=== PATIENT | male | born 1970 | race Caucasian/White ===

== ENCOUNTER 2018-03-01 18:31 | Emergency (ER) | payer OTHER ==
[2018-03-01] MEDS ORDERED: CYCLOBENZAPRINE 10 MG TAB ONE (20:13)
[2018-03-01] MEDS ORDERED: ONDANSETRON 4 MG/2 ML VIAL ONE (20:15)
[2018-03-01] MEDS ORDERED: KETOROLAC 30 MG/ML INJ ONE (20:15)
[2018-03-01] MEDS ORDERED: MORPHINE 4 MG/ML SYR ONE (20:15)
--- NOTE | 2018-03-01 21:11 | RAD REPORT ---
EXAM DESCRIPTION: CT - Spine Lumbar Wo Con - 03/01/2018 8:51 pm CLINICAL HISTORY: LOWER BACK PAIN<Reason For Exam>LOWER BACK PAIN COMPARISON: No comparisons<Comparisons> TECHNIQUE: Thin section axial imaging of the lumbar spine was performed. Sagittal and coronal recon struction images were generated and reviewed. All CT scans are performed using dose optimization technique as appropriate and may include automated exposure control or mA/KV adjustment according to patient size. FINDINGS: Lumbar bodies are normal in height and normal alignment. Pedicle screws and rods are in pl carleen fusing the L5-S1 level. There is additional metallic hardware spanning the L5-S1 disc level. L4-5 fusion material is present in the disc space. No fracture or acute bone process seen. No lytic, scle rotic or expansile process identified. No gross evidence for central disc herniation or significant central spinal stenosis. Patient has a m ild disc bulge across the central canal at L2-3 with more prominent disc bulge at L3-4. Canal appears to be stenotic at L3-4. L4-5 and L5-S1 assessment is limited by the hardware. No gross evidence for central canal stenosis. IMPRESSION: Prominent circumferential bulging of disc material at L3-4. Facet degenerative change an d mild ligamentous thickening are present. L3-4 changes result in central spinal stenosis and there is likely bilateral foraminal encroachment a s well. Fusion of the L4-5 disc space with no acute finding. Surgical hardware and graft material fuse the L5-S1 level. Again, no acute finding identifiable.
[2018-03-01 21:23] LABS: Urine Blood NEGATIVE (NEG); Urine Glucose NEGATIVE (NEG); Urine Protein NEGATIVE (NEG); Urine pH 6.5 (5.0-7.0)
[2018-03-01] MEDS ORDERED: HYDROMORPHONE HCL 0.5 MG/0.5 ML INJ ONE (22:35)
--- NOTE | 2018-03-01 22:42 | ER ---
Nurse's Notes [facility] Name: Ronald Guadalupe Age: 47 yrs Sex: Male : 1970 Arrival Date: 03/01/2018 Time: 18:38 Bed 8 Private MD: None, None Diagnosis: Low back pain Presentation: 03/01 18:48 Presenting complaint: Patient states: low back pain x 1 day. Transition of care: sv patient was not received from another setting of care. Onset of symptoms was February 28, 2018. Care prior to arrival: None. 18:48 Method Of Arrival: Ambulatory sv 18:48 Acuity: SAMMIE 4 sv 19:28 Risk Assessment: Do you want to hurt yourself or someone else? Patient reports no jd3 desire to harm self or others. Initial Sepsis Screen: Does the patient meet any 2 criteria? No. Patient's initial sepsis screen is negative. Does the patient have a suspected source of infection? No. Patient's initial sepsis screen is negative. Triage Assessment: 18:51 General: Appears in no apparent distress. uncomfortable, Behavior is calm, cooperative, sv appropriate for age. Pain: Complains of pain in low back area Pain currently is 8 out of 10 on a pain scale. Pain began 1 day ago. EENT: No signs and/or symptoms were reported regarding the EENT system. Neuro: Level of Consciousness is awake, alert, obeys commands, Oriented to person, place, time, situation, Moves all extremities. Full function Gait is steady. Respiratory: Respiratory effort is even, unlabored, Respiratory pattern is regular, symmetrical. Musculoskeletal: Range of motion: intact in all extremities. Historical: - Allergies: 18:50 No Known Allergies; sv - Home Meds: 18:50 Oxycodone HCl Oral [Active]; Etodolac Oral [Active]; Atenolol Oral [Active]; gabapentin sv oral oral [Active]; - PMHx: 18:50 Hypertension; sv - PSHx: 18:50 Back; Tonsillectomy; sv - Immunization history:: Adult Immunizations up to date. - Social history:: Smoking status: Patient uses tobacco products, smokes one pack cigarettes per day. - Ebola Screening: : No symptoms or risks identified at this time. Screenin:27 Abuse screen: Denies threats or abuse. Nutritional screening: No deficits noted. jd3 Tuberculosis screening: No symptoms or risk factors identified. Fall Risk Ambulatory Aid- None/Bed Rest/Nurse Assist (0 pts). Gait- Weak (10 pts.). Mental Status- Oriented to own ability (0 pts). Total Singleton Fall Scale indicates No Risk (0-24 pts). Assessment: 19:23 General: Appears uncomfortable, Behavior is cooperative, anxious. Pain: Complains of jd3 pain in sacrum Pain currently is 10 out of 10 on a pain scale. Quality of pain is described as sharp, shooting, different from pt's chronic back pain. Neuro: Level of Consciousness is awake, alert, obeys commands, Oriented to person, place, time, situation. Cardiovascular: Capillary refill < 3 seconds Patient's skin is warm and dry. Respiratory: Airway is patent Respiratory effort is even, unlabored, Respiratory pattern is regular, symmetrical. GI: Abdomen is round Reports nausea, vomiting, Patient currently denies abdominal pain. : No signs and/or symptoms were reported regarding the genitourinary system. EENT: No signs and/or symptoms were reported regarding the EENT system. Derm: Skin is intact, Skin is dry, Skin is normal, Skin temperature is warm. Musculoskeletal: Circulation, motion, and sensation intact. Range of motion: intact in all extremities. 20:32 Reassessment: Patient appears in no apparent distress at this time. No changes from jd3 previously documented assessment. Patient and/or family updated on plan of care and expected duration. Pain level reassessed. Patient is alert, oriented x 3, equal unlabored respirations, skin warm/dry/pink. 21:15 Reassessment: Patient appears in no apparent distress at this time. No changes from jd3 previously documented assessment. Patient and/or family updated on plan of care and expected duration. Pain level reassessed. Patient is alert, oriented x 3, equal unlabored respirations, skin warm/dry/pink. 22:22 Reassessment: Patient appears in no apparent distress at this time. No changes from jd3 previously documented assessment. Patient and/or family updated on plan of care and expected duration. Pain level reassessed. Patient is alert, oriented x 3, equal unlabored respirations, skin warm/dry/pink. 23:03 Reassessment: Patient appears in no apparent distress at this time. Patient and/or [facility] family updated on plan of care and expected duration. Pain level reassessed. Patient is alert, oriented x 3, equal unlabored respirations, skin warm/dry/pink. Vital Signs: 18:50 BP 161 / 79; Pulse 55; Resp 18; Temp 97; Pulse Ox 99% ; Weight 99.79 kg; Height 6 ft. 2 sv in. (187.96 cm); Pain 8/10; 20:31 BP 142 / 75; Pulse 50; Resp 18 S; Pulse Ox 98% on R/A; jd3 21:14 BP 159 / 47; Pulse 49; Resp 17 S; Pulse Ox 97% on R/A; jd3 22:21 BP 144 / 71; Pulse 54; Resp 17 S; Pulse Ox 100% on R/A; jd3 18:50 Body Mass Index 28.25 (99.79 kg, 187.96 cm) sv ED Course: 18:38 Patient arrived in ED. sb2 18:39 None, None is Private Physician. sb2 18:49 Triage completed. sv 18:51 Arm band placed on left wrist. sv 18:52 Patient placed in waiting room, Patient notified of wait time. sv 19:16 Ramirez Barth MD is Attending Physician. tw4 19:19 Gagan Weber, MAGUE is Primary Nurse. jd3 19:28 Patient has correct armband on for positive identification. Bed in low position. Call jd3 light in reach. Side rails up X 1. Adult w/ patient. 20:00 Inserted saline lock: 20 gauge in right antecubital area, using aseptic technique. jd3 Blood collected. 20:[address] jg6 20:48 CT completed. Patient tolerated procedure well. Patient moved back from PR. nj 20:52 CT Lumbar Spine Wo Con In Process Unspecified. EDMS 23:02 No provider procedures requiring assistance completed. IV discontinued, intact, jd3 bleeding controlled, No redness/swelling at site. Pressure dressing applied. Administered Medications: 20:16 Drug: Flexeril 10 mg Route: PO; jd3 20:52 Follow up: Response: No adverse reaction jd3 20:17 Drug: morphine 4 mg Route: IVP; Site: right antecubital; jd3 20:53 Follow up: Response: No adverse reaction jd3 20:17 Drug: Zofran 4 mg Route: IVP; Site: right antecubital; jd3 20:52 Follow up: Response: No adverse reaction jd3 20:17 Drug: TORadol 30 mg Route: IVP; Site: right antecubital; jd3 20:52 Follow up: Response: No adverse reaction jd3 22:34 Drug: Dilaudid 0.5 mg Route: IVP; Site: right antecubital; jd3 23:00 Follow up: Response: No adverse reaction jd3 Outcome: 22:41 Discharge ordered by . tw4 23:02 Discharged to home via wheelchair, with family. jd3 23:02 Condition: stable 23:02 Discharge instructions given to patient, family, Instructed on discharge instructions, follow up and referral plans. medication usage, Demonstrated understanding of instructions, follow-up care, medications, Prescriptions given X 3. 23:03 Patient left the ED. jd3 Signatures: Dispatcher [employer] EDRacquel Singh RN RN sv Jordan, Gagan Waite RN RN jd3 Wadley, Terrence, MD MD tw4 Joelle Hines2 Jessica Gonzalez jg6 Corrections: (The following items were deleted from the chart) 21:15 20:32 Reassessment: Patient appears in no apparent distress at this time. Patient jd3 and/or family updated on plan of care and expected duration. Pain level reassessed. Patient is alert, oriented x 3, equal unlabored respirations, skin warm/dry/pink. jd3
--- NOTE | 2018-03-01 22:42 | EDPHYS ---
Physician Documentation [facility] Name: Ronald Guadalupe Age: 47 yrs Sex: Male : 1970 Arrival Date: 03/01/2018 Time: 18:38 Bed 8 Private MD: None, None ED Physician Ramirez Barth HPI: 03/01 20:45 This 47 yrs old Male presents to ER via Ambulatory with complaints of Back tw4 Pain. Historical: - Allergies: 18:50 No Known Allergies; sv - Home Meds: 18:50 Oxycodone HCl Oral [Active]; Etodolac Oral [Active]; Atenolol Oral [Active]; gabapentin sv oral oral [Active]; - PMHx: 18:50 Hypertension; sv - PSHx: 18:50 Back; Tonsillectomy; sv - Immunization history:: Adult Immunizations up to date. - Social history:: Smoking status: Patient uses tobacco products, smokes one pack cigarettes per day. - Ebola Screening: : No symptoms or risks identified at this time. ROS: 22:32 Constitutional: Negative for fever, chills, and weight loss, Eyes: Negative for injury, tw4 pain, redness, and discharge, Cardiovascular: Negative for chest pain, palpitations, and edema, Respiratory: Negative for shortness of breath, cough, wheezing, and pleuritic chest pain, Abdomen/GI: Negative for abdominal pain, nausea, vomiting, diarrhea, and constipation, MS/Extremity: Negative for injury and deformity, Skin: Negative for injury, rash, and discoloration. 22:32 Back: Positive for injury or acute deformity, decreased range of motion, pain at rest, pain with movement. Exam: 22:32 Constitutional: This is a well developed, well nourished patient who is awake, alert, tw4 and in no acute distress. Head/Face: Normocephalic, atraumatic. Chest/axilla: Normal chest wall appearance and motion. Nontender with no deformity. No lesions are appreciated. Cardiovascular: Regular rate and rhythm with a normal S1 and S2. No gallops, murmurs, or rubs. Normal PMI, no JVD. No pulse deficits. Respiratory: Lungs have equal breath sounds bilaterally, clear to auscultation and percussion. No rales, rhonchi or wheezes noted. No increased work of breathing, no retractions or nasal flaring. Abdomen/GI: Soft, non-tender, with normal bowel sounds. No distension or tympany. No guarding or rebound. No evidence of tenderness throughout. 22:32 MS/ Extremity: Pulses equal, no cyanosis. Neurovascular intact. Full, normal range of motion. Neuro: Awake and alert, GCS 15, oriented to person, place, time, and situation. Cranial nerves II-XII grossly intact. Motor strength 5/5 in all extremities. Sensory grossly intact. Cerebellar exam normal. Normal gait. 22:32 Back: pain, that is mild, of the lumbar area, ROM is Vital Signs: 18:50 BP 161 / 79; Pulse 55; Resp 18; Temp 97; Pulse Ox 99% ; Weight 99.79 kg; Height 6 ft. 2 sv in. (187.96 cm); Pain 8/10; 20:31 BP 142 / 75; Pulse 50; Resp 18 S; Pulse Ox 98% on R/A; jd3 21:14 BP 159 / 47; Pulse 49; Resp 17 S; Pulse Ox 97% on R/A; jd3 22:21 BP 144 / 71; Pulse 54; Resp 17 S; Pulse Ox 100% on R/A; jd3 18:50 Body Mass Index 28.25 (99.79 kg, 187.96 cm) sv MDM: 19:23 Patient medically screened. tw4 22:45 Data reviewed: vital signs, nurses notes. Counseling: I had a detailed discussion with tw4 the patient and/or guardian regarding: the historical points, exam findings, and any diagnostic results supporting the discharge/admit diagnosis. Counseling: I had a detailed discussion with the patient and/or guardian regarding: radiology results. Medication response: morphine partially relieved the patient's pain. Special discussion: I discussed with the patient/guardian in detail that at this point there is no indication for admission to the hospital. It is understood, however, that if the symptoms persist or worsen the patient needs to return immediately for re-evaluation. 03/01 20:08 Order name: Urine Dipstick--Ancillary (enter results); Complete Time: 22:24 mt 03/01 20:27 Order name: CT Lumbar Spine Wo Con; Complete Time: 22:24 jd3 Administered Medications: 20:16 Drug: Flexeril 10 mg Route: PO; jd3 20:52 Follow up: Response: No adverse reaction jd3 20:17 Drug: morphine 4 mg Route: IVP; Site: right antecubital; jd3 20:53 Follow up: Response: No adverse reaction jd3 20:17 Drug: Zofran 4 mg Route: IVP; Site: right antecubital; jd3 20:52 Follow up: Response: No adverse reaction jd3 20:17 Drug: TORadol 30 mg Route: IVP; Site: right antecubital; jd3 20:52 Follow up: Response: No adverse reaction jd3 22:34 Drug: Dilaudid 0.5 mg Route: IVP; Site: right antecubital; jd3 23:00 Follow up: Response: No adverse reaction jd3 Disposition: 03/01/18 22:41 Discharged to Home. Impression: Low back pain. - Condition is Stable. - Discharge Instructions: Back Pain, Adult, Chronic Back Pain, Back Injury Prevention, Uwrf-[id number], Back Exercises, Zgsd-[id number]. - Prescriptions for Ibuprofen 800 mg Oral Tablet - take 1 tablet by ORAL route every 8 hours As needed take with food; 30 tablet. Cyclobenzaprine 10 mg Oral Tablet - take 1 tablet by ORAL route every 8 hours As needed; 30 tablet. Diclofenac Sodium 75 mg Oral Tablet Sustained Release - take 1 tablet by ORAL route 2 times per day; 30 tablet. - Medication Reconciliation Form, Thank You Letter, Antibiotic Education, Prescription Opioid Use form. - Follow up: Private Physician; When: Upon discharge from the Emergency Department; Reason: Further diagnostic work-up, Recheck today's complaints, Continuance of care. - Problem is new. - Symptoms have improved. Signatures: Dispatcher [employer] Racquel Alston RN RN sv Davies, Jonathon, RN RN Ramirez Parker MD MD tw4 Corrections: (The following items were deleted from the chart) 23:03 22:41 03/01/2018 22:41 Discharged to Home. Impression: Low back pain. Condition is jd3 Stable. Forms are Medication Reconciliation Form, Thank You Letter, Antibiotic Education, Prescription Opioid Use. Follow up: Private Physician; When: Upon discharge from the Emergency Department; Reason: Further diagnostic work-up, Recheck today's complaints, Continuance of care. Problem is new. Symptoms have improved. tw4
== END 2018-03-01 23:03 | disposition home or self-care (01) ==
LOC: ER 18:31
DX: M54.5 Low back pain (principal); I10 Essential (primary) hypertension; F17.210 Nicotine dependence, cigarettes, uncomplicated
CPT/HCPCS: 72131; 81003; 96374; 96375; 99284; J1170; J2405

== ENCOUNTER 2019-03-29 19:05 | Emergency (ER) | payer OTHER ==
[2019-03-29] MEDS ORDERED: CYCLOBENZAPRINE 10 MG TAB ONE (21:34)
[2019-03-29] MEDS ORDERED: DIAZEPAM 5 MG TABLET ONE (21:35)
[2019-03-29] MEDS ORDERED: KETOROLAC 30 MG/ML INJ ONE (21:35)
--- NOTE | 2019-03-29 21:42 | EDPHYS ---
Physician Documentation [facility] Name: Ronald Guadalupe Age: 48 yrs Sex: Male : 1970 Arrival Date: 03/29/2019 Time: 19:06 Bed 14 Private MD: ED Physician David Soler HPI: 03/29 21:11 This 48 yrs old Male presents to ER via Ambulatory with complaints of Back snw Pain. 21:11 The patient presents with pain that is acute. The symptoms are located in the low back. snw Onset: The symptoms/episode began/occurred suddenly, 3 day(s) ago, and became persistent. Location: left lateral leg. Associated signs and symptoms: The patient has no apparent associated signs or symptoms, Pertinent negatives: constipation, incontinence, urinary retention. The problem was sustained from unknown cause. Severity of symptoms: At their worst the symptoms were moderate. The patient has experienced similar episodes in the past. sees Pain management. Historical: - Allergies: 19:24 No Known Allergies; sg - PMHx: 19:24 Hypertension; sg - PSHx: 19:24 Back; Tonsillectomy; sg - Immunization history:: Adult Immunizations up to date. - Social history:: Smoking status: Patient/guardian denies using tobacco. - Ebola Screening: : Patient negative for fever greater than or equal to 101.5 degrees Fahrenheit, and additional compatible Ebola Virus Disease symptoms Patient denies exposure to infectious person Patient denies travel to an Ebola-affected area in the 21 days before illness onset No symptoms or risks identified at this time. ROS: 21:11 Constitutional: Negative for fever, chills, and weight loss, Eyes: Negative for injury, snw pain, redness, and discharge, ENT: Negative for injury, pain, and discharge, Neck: Negative for injury, pain, and swelling, Cardiovascular: Negative for chest pain, palpitations, and edema, Respiratory: Negative for shortness of breath, cough, wheezing, and pleuritic chest pain, Abdomen/GI: Negative for abdominal pain, nausea, vomiting, diarrhea, and constipation, Back: Negative for injury, positive for significant surgery and extreme pain to lateral left leg to knee, : Negative for injury, bleeding, discharge, and swelling, MS/Extremity: Negative for injury and deformity, Skin: Negative for injury, rash, and discoloration, Neuro: Negative for headache, weakness, numbness, tingling, and seizure. Exam: 21:09 Constitutional: This is a well developed, well nourished patient who is awake, alert, snw and in no acute distress. Head/Face: Normocephalic, atraumatic. Eyes: Pupils equal round and reactive to light, extra-ocular motions intact. Lids and lashes normal. Conjunctiva and sclera are non-icteric and not injected. Cornea within normal limits. Periorbital areas with no swelling, redness, or edema. Neck: Trachea midline, no thyromegaly or masses palpated, and no cervical lymphadenopathy. Supple, full range of motion without nuchal rigidity, or vertebral point tenderness. No Meningismus. Chest/axilla: Normal chest wall appearance and motion. Nontender with no deformity. No lesions are appreciated. Cardiovascular: Regular rate and rhythm with a normal S1 and S2. No gallops, murmurs, or rubs. Normal PMI, no JVD. No pulse deficits. Respiratory: Lungs have equal breath sounds bilaterally, clear to auscultation and percussion. No rales, rhonchi or wheezes noted. No increased work of breathing, no retractions or nasal flaring. Abdomen/GI: Soft, non-tender, with normal bowel sounds. No distension or tympany. No guarding or rebound. No evidence of tenderness throughout. Skin: Warm, dry with normal turgor. Normal color with no rashes, no lesions, and no evidence of cellulitis. MS/ Extremity: Pulses equal, no cyanosis. Neurovascular intact. Full, normal range of motion. Neuro: Awake and alert, GCS 15, oriented to person, place, time, and situation. Cranial nerves II-XII grossly intact. Motor strength 5/5 in all extremities. Sensory grossly intact. Cerebellar exam normal. Normal gait. Psych: Awake, alert, with orientation to person, place and time. Behavior, mood, and affect are within normal limits. 21:09 ENT: Nose: is normal, Mouth: is normal, Posterior pharynx: is normal, Voice: is normal. 21:09 ENT: Dental exam: widespread decay. 21:09 Back: pain, that is moderate, that is severe, of the left low back, ROM is painful, CVA tenderness, is absent, muscle spasm, is not present. Vital Signs: 19:26 BP 191 / 93; Pulse 99; Resp 17; Temp 97.4; Pulse Ox 99% on R/A; Pain 10/10; sg 22:00 BP 167 / 77; Pulse 60; Resp 16; Pulse Ox 98% on R/A; jb4 MDM: 20:39 Patient medically screened. snw 21:43 Data reviewed: vital signs, nurses notes. Data interpreted: Pulse oximetry: on room air snw is 99 %. Interpretation: normal. Counseling: I had a detailed discussion with the patient and/or guardian regarding: the historical points, exam findings, and any diagnostic results supporting the discharge/admit diagnosis, the presence of at least one elevated blood pressure reading (>120/80) during this emergency department visit, radiology results, the need for outpatient follow up, to return to the emergency department if symptoms worsen or persist or if there are any questions or concerns that arise at home. Special discussion: Based on the history and exam findings, there is no indication for further emergent testing or inpatient evaluation. I discussed with the patient/guardian the need to see the back specialist for further evaluation of the symptoms. I discussed with the patient/guardian the need to see the primary care provider for further evaluation of the symptoms. 03/29 21:03 Order name: XRAY Lumbar Spine (3 Views) snw Administered Medications: 21:46 Drug: Valium 5 mg Route: PO; jb4 22:00 Follow up: Response: No adverse reaction; Pain is decreased jb4 21:46 Drug: Flexeril 10 mg Route: PO; jb4 22:00 Follow up: Response: No adverse reaction; Pain is decreased jb4 21:47 Drug: TORadol 30 mg Route: IM; Site: right gluteus; jb4 22:00 Follow up: Response: No adverse reaction; Pain is decreased jb4 Disposition: 03/30 12:44 Co-signature as Attending Physician, David Soler MD I agree with the assessment and ishaan plan of care. Disposition: 03/29/19 21:42 Discharged to Home. Impression: Low back pain, Sciatica, left side. - Condition is Stable. - Discharge Instructions: Back Pain, Adult, Chronic Back Pain, Hypertension, Musculoskeletal Pain, Sciatica, Cryotherapy, Rehydration, Adult, Heat Therapy, Radicular Pain. - Prescriptions for Prednisone 20 mg Oral Tablet - take 2 tablet by ORAL route once daily for 5 days; 10 tablet. orphenadrine citrate 100 mg Oral Tablet Sustained Release - take 1 tablet by ORAL route 2 times per day As needed; 20 tablet. - Work release form, Medication Reconciliation Form, Thank You Letter, Antibiotic Education, Prescription Opioid Use form. - Follow up: Private Physician; When: 2 - 3 days; Reason: Recheck today's complaints, Continuance of care, Re-evaluation by your physician. Follow up: Emergency Department; When: As needed; Reason: Worsening of condition. Signatures: Dispatcher [employer] EDMS Rosales Baez, RN RN David Kirby MD MD cha Therrien, Shelly, REGISTERED VETERINARY TECHNICIAN-C REGISTERED VETERINARY TECHNICIAN-Csnw Yovanny Etienne RN RN jb4 Corrections: (The following items were deleted from the chart) 03/29 22:02 21:42 03/29/2019 21:42 Discharged to Home. Impression: Low back pain; Sciatica, left jb4 side. Condition is Stable. Forms are Medication Reconciliation Form, Thank You Letter, Antibiotic Education, Prescription Opioid Use. Follow up: Private Physician; When: 2 - 3 days; Reason: Recheck today's complaints, Continuance of care, Re-evaluation by your physician. Follow up: Emergency Department; When: As needed; Reason: Worsening of condition. snw
--- NOTE | 2019-03-29 21:42 | ER ---
Nurse's Notes [facility] Name: Ronald Guadalupe Age: 48 yrs Sex: Male : 1970 Arrival Date: 03/29/2019 Time: 19:06 Bed 14 Private MD: Diagnosis: Low back pain;Sciatica, left side Presentation: 03/29 19:24 Presenting complaint: Patient states: reports having left sided hip pain and leg pain, sg reports was in a work place accident. Has had sx to help correct the damage, reports that about two days ago the pain started and has just started worsening today, pt reports he is able to walk and bear weight but uses a cane which is normal for him. Transition of care: patient was not received from another setting of care. Onset of symptoms was March 29, 2019. Risk Assessment: Do you want to hurt yourself or someone else? Patient reports no desire to harm self or others. Initial Sepsis Screen: Does the patient meet any 2 criteria? No. Patient's initial sepsis screen is negative. Does the patient have a suspected source of infection? No. Patient's initial sepsis screen is negative. Care prior to arrival: None. 19:24 Method Of Arrival: Ambulatory 19:24 Acuity: SAMMIE 4 sg Historical: - Allergies: 19:24 No Known Allergies; sg - PMHx: 19:24 Hypertension; sg - PSHx: 19:24 Back; Tonsillectomy; sg - Immunization history:: Adult Immunizations up to date. - Social history:: Smoking status: Patient/guardian denies using tobacco. - Ebola Screening: : Patient negative for fever greater than or equal to 101.5 degrees Fahrenheit, and additional compatible Ebola Virus Disease symptoms Patient denies exposure to infectious person Patient denies travel to an Ebola-affected area in the 21 days before illness onset No symptoms or risks identified at this time. Screenin:00 Abuse screen: Denies threats or abuse. Nutritional screening: No deficits noted. jb4 Tuberculosis screening: No symptoms or risk factors identified. Fall Risk None identified. Assessment: 21:00 General: Appears in no apparent distress. uncomfortable, Behavior is calm, cooperative, jb4 appropriate for age. Pain: Complains of pain in low back area Pain radiates to left leg Pain currently is 7 out of 10 on a pain scale. Quality of pain is described as shooting, stabbing. Neuro: Level of Consciousness is awake, alert, obeys commands, Oriented to person, place, time, situation. Cardiovascular: Patient's skin is warm and dry. Respiratory: Airway is patent Respiratory effort is even, unlabored, Respiratory pattern is regular, symmetrical. GI: No deficits noted. No signs and/or symptoms were reported involving the gastrointestinal system. : No deficits noted. No signs and/or symptoms were reported regarding the genitourinary system. EENT: No deficits noted. No signs and/or symptoms were reported regarding the EENT system. Derm: Skin is intact, Skin is pink, warm \T\ dry. Musculoskeletal: Circulation, motion, and sensation intact. Range of motion: intact in all extremities. 22:00 Reassessment: Patient appears in no apparent distress at this time. Patient and/or jb4 family updated on plan of care and expected duration. Pain level reassessed. Patient is alert, oriented x 3, equal unlabored respirations, skin warm/dry/pink. PT verbalized understanding of d/c and follow up instructions. Assisted out of ED via wheelchair. Vital Signs: 19:26 BP 191 / 93; Pulse 99; Resp 17; Temp 97.4; Pulse Ox 99% on R/A; Pain 10/10; sg 22:00 BP 167 / 77; Pulse 60; Resp 16; Pulse Ox 98% on R/A; jb4 ED Course: 19:06 Patient arrived in ED. as 19:24 Arm band placed on. sg 19:26 Triage completed. sg 20:38 Adrianna Brandt FNP-C [facility]. snw 20:38 David Soler MD is Attending Physician. snw 21:19 Yovanny Etienne, MAGUE is Primary Nurse. jb4 21:30 XRAY Lumbar Spine (3 Views) In Process Unspecified. EDMS 22:00 No provider procedures requiring assistance completed. Patient did not have IV access jb4 during this emergency room visit. Administered Medications: 21:46 Drug: Valium 5 mg Route: PO; jb4 22:00 Follow up: Response: No adverse reaction; Pain is decreased jb4 21:46 Drug: Flexeril 10 mg Route: PO; jb4 22:00 Follow up: Response: No adverse reaction; Pain is decreased jb4 21:47 Drug: TORadol 30 mg Route: IM; Site: right gluteus; jb4 22:00 Follow up: Response: No adverse reaction; Pain is decreased jb4 Outcome: 21:42 Discharge ordered by . rosa maria 22:00 Discharged to home via wheelchair, with family. jb4 22:00 Condition: stable 22:00 Discharge instructions given to patient, family, Instructed on discharge instructions, follow up and referral plans. medication usage, Demonstrated understanding of instructions, follow-up care, medications, Prescriptions given X 2. 22:02 Patient left the ED. jb4 Signatures: Dispatcher [employer] EDMS Rosales Baez, RN RN sg Adrianna Brandt, COUNTERSINKER-C COUNTERSINKER-CsnRia Anand James, RN RN jb4
[2019-03-29 23:20] VITALS: BP 191/93; TEMP 97.4; O2SAT 99
--- NOTE | 2019-03-30 07:47 | RAD REPORT ---
EXAM DESCRIPTION: RAD - Lumbar Spine 3 Views - 03/29/2019 9:29 pm CLINICAL HISTORY: Back pain FINDINGS: Posterior fusion involves L5 and S1 with screws united by rods. Bone plugs have been place d at L4-5 and L5-S1 Alignment lumbar spine is satisfactory. No fracture is seen. No dislocation. Mild spondylosis.
== END 2019-03-29 22:02 | disposition home or self-care (01) ==
LOC: ER 19:05
DX: M54.32 Sciatica, left side (principal)
CPT/HCPCS: 72100; 96372; 99283